=== PATIENT | female | born 1980 | race American Indian/Alaskan Native ===

== ENCOUNTER 2017-03-28 23:14 | Emergency (ER) | payer BC, MEDICAID ==
[2017-03-28 23:21] VITALS: BP 138/85; RESP 18; TEMP 98.6; O2SAT 100
--- NOTE | 2017-03-28 23:48 | C.PDOC ---
History Of Present Illness 36 y/o female presents to the ER c/o feeling nauseous associated with occasional cramping to the pelvic area for the past few days. Patient reports more frequent urination and also states she thinks she may be . Patient denies vaginal bleeding/discharge, vomiting, diarrhea, dysuria/ hematuria, fever. Patient already has an OBGYN, and is scheduled for an appointment in 2 weeks. Time Seen by Provider: 03/28/17 23:25 Chief Complaint (Nursing): Abdominal Pain History Per: Patient History/Exam Limitations: no limitations Onset/Duration Of Symptoms: Days Current Symptoms Are (Timing): Still Present Severity: Mild Location Of Pain/Discomfort: Suprapubic (pelvic area) Quality Of Discomfort: Cramping Associated Symptoms: Nausea Abnormal Vaginal Bleeding: No Past Medical History Reviewed: Historical Data, Nursing Documentation, Vital Signs Vital Signs: Last Vital Signs Temp 98.6 F 03/28/17 23:17 Pulse 72 03/28/17 23:55 Resp 18 03/28/17 23:55 BP 138/85 03/28/17 23:17 Pulse Ox 100 03/28/17 23:58 - Medical History PMH: No Chronic Diseases Family History: States: No Known Family Hx - Social History Hx Alcohol Use: Yes Hx Substance Use: No - Immunization History Hx Tetanus Toxoid Vaccination: No Hx Influenza Vaccination: No Hx Pneumococcal Vaccination: No Review Of Systems Except As Marked, All Systems Reviewed And Found Negative. Constitutional: Negative for: Fever, Chills Cardiovascular: Negative for: Chest Pain Respiratory: Negative for: Shortness of Breath Gastrointestinal: Positive for: Nausea. Negative for: Vomiting, Diarrhea Genitourinary: Positive for: Pelvic Pain (Cramping). Negative for: Dysuria, Hematuria, Vaginal Discharge, Vaginal Bleeding Skin: Negative for: Rash Physical Exam - Physical Exam Appears: Well, Non-toxic, No Acute Distress Skin: Normal Color, Warm, Dry Oral Mucosa: Moist Cardiovascular: Rhythm Regular Respiratory: Normal Breath Sounds, No Rales, No Rhonchi, No Wheezing Gastrointestinal/Abdominal: Normal Exam, Bowel Sounds, Soft, No Tenderness Back: Normal Inspection, No CVA Tenderness Neurological/Psych: Oriented x3 Gait: Steady ED Course And Treatment O2 Sat by Pulse Oximetry: 100 (RA) Pulse Ox Interpretation: Normal Progress Note: UPreg POC ordered and was negative. Patient offered further workup, but does not wany anything further done, states she cannot wait and that she already has engraver machine appointment scheduled. Patient instructed to return to ED if she develops any concerning symptoms. Disposition Counseled Patient/Family Regarding: Diagnosis, Need For Followup - Disposition Referrals: [facility] [Outside] Disposition: HOME/ ROUTINE Disposition Time: 11:55 Condition: STABLE Additional Instructions: FOLLOW UP WITH YOUR MANUFACTURING ENGINEER PAINT SCHEDULED RETURN TO ER IF YOU HAVE ANY CONCERNING SYMPTOMS Forms: [employer] (Faroese), General Discharge Instructions Print Language: PORTUGUESE - POA Present On Arrival: None - Clinical Impression Clinical Impression: Delayed period, Pelvic cramping - Scribe Statement The provider has reviewed the documentation as recorded by the Scribe James perez All medical record entries made by the Danialibmonique were at my direction and personally dictated by me. I have reviewed the chart and agree that the record accurately reflects my personal performance of the history, physical exam, medical decision making, and the department course for this patient. I have also personally directed, reviewed, and agree with the discharge instructions and disposition.
[2017-03-29 00:39] VITALS: PULSE 72
== END 2017-03-29 00:38 | disposition home or self-care (01) ==
LOC: C.ER 23:14 → SUPCPDRO 23:14 → C.ER 03-29 00:38
DX: N91.0 Primary amenorrhea (principal)